=== PATIENT | male | born 1945 | race African-American/Black ===

== ENCOUNTER 2018-05-03 15:02 | Inpatient (IN) | payer MEDICARE, MEDICAID ==
[~2018-05-03] VITALS: Ht 170.2 cm; Wt 73.9 kg
[2018-05-03] MEDS ORDERED: SODIUM CHLORIDE 0.9% 1000ML BAG (SEPSIS BOLUS) IV ONE (15:45)
[2018-05-03 16:15] LABS: CHLORIDE 101 mEq/L (98-107)
[2018-05-03 16:18] LABS: PROTHROMBIN TIME 10.5 sec (9.1-11.1)
[2018-05-03 16:20] LABS: ETHANOL BLOOD < 10 mg/dL
[2018-05-03 16:21] LABS: HEMATOCRIT. 34.8 % (42.0-52.0); HEMOGLOBIN. 11.8 g/dL (14.0-18.0); LYMPHOCYTES % 25.3 % (20.0-50.0); MEAN CORPUSCULAR HEMOGLOBIN 31.8 pg (28.0-32.0); MEAN CORPUSCULAR VOLUME 94.1 fL (80.0-94.0); MEAN PLATELET VOLUME 8.1 fl (7.4-10.4); MONOCYTES % 10.4 % (2.0-8.0); NEUTROPHILS % 58.3 % (40.0-76.0); PLATELET 369 x1000/uL (130-400); RED CELL DISTRIBUTION WIDTH 13.1 % (11.6-14.6)
[2018-05-03 18:12] LABS: CLARITY URINE CLEAR (CLEAR); COLOR URINE YELLOW (YELLOW); KETONES URINE TRACE (NEGATIVE); LEUKOCYTE ESTERASE URINE NEGATIVE (NEGATIVE); NITRITE URINE NEGATIVE (NEGATIVE); OCCULT BLOOD URINE 1+ (NEGATIVE); PH URINE 5.5 (4.5-8.0); PROTEIN URINE NEGATIVE (NEGATIVE); SPECIFIC GRAVITY URINE 1.017 (1.005-1.030)
[2018-05-03 18:34] LABS: CANNABINOID URINE SCREEN NEGATIVE (NEGATIVE); METHADONE URINE SCREEN NEGATIVE (NEGATIVE); OPIATES URINE SCREEN NEGATIVE (NEGATIVE); PHENCYCLIDINE URINE SCREEN NEGATIVE (NEGATIVE)
[2018-05-03 18:35] LABS: *AMPHETAMINES SCREEN URINE NEGATIVE (NEGATIVE); *BARBITURATES SCREEN URINE NEGATIVE (NEGATIVE); *BENZODIAZEPINES SCREEN URINE NEGATIVE (NEGATIVE); *COCAINE SCREEN URINE NEGATIVE (NEGATIVE)
[2018-05-03 19:30] LABS: AMMONIA 42 uMol/L (<32)
[2018-05-03] MEDS ORDERED: CHLO25TA2 PO (23:47)
[2018-05-03] MEDS ORDERED: QUET50TA PO (23:47)
[2018-05-03] MEDS ORDERED: BENA40TA9 PO (23:47)
[2018-05-03] MEDS ORDERED: NIFE30TA83 PO (23:47)
[2018-05-03] MEDS ORDERED: ATOR10TA69 PO (23:47)
[2018-05-03] MEDS ORDERED: ACET-2178 PO (23:47)
[2018-05-04] VITALS (13 sets, daily range): BP systolic 92–136; BP diastolic 57–89
[2018-05-04] MEDS ORDERED: MEDICATION NOT ON FORMULARY EA (Acetaminophen (Tylenol) 2 TAB) PO PRN (01:00)
[2018-05-04] MEDS ORDERED: ONDANSETRON HCL 4MG/2ML VIAL IV PRN (01:00)
[2018-05-04] MEDS ORDERED: ACETAMINOPHEN 325MG TABLET PO PRN (01:30)
[2018-05-04] MEDS: SODIUM CHLORIDE 0.9% 1,000 ML IV SCH ×2 (02:57→16:42)
[2018-05-04 07:08] LABS: CHLORIDE 106 mEq/L (98-107)
[2018-05-04 07:15] LABS: BASOPHILS % 0.9 % (0.0-2.0); EOSINOPHILS % 6.1 % (0.0-5.0); HEMATOCRIT. 32.1 % (42.0-52.0); HEMOGLOBIN. 10.8 g/dL (14.0-18.0); LYMPHOCYTES % 28.1 % (20.0-50.0); MEAN CORPUSCULAR HEMOGLOBIN 31.9 pg (28.0-32.0); MEAN CORPUSCULAR VOLUME 94.5 fL (80.0-94.0); MEAN PLATELET VOLUME 7.8 fl (7.4-10.4); MONOCYTES % 8.6 % (2.0-8.0); NEUTROPHILS % 56.3 % (40.0-76.0); PLATELET 343 x1000/uL (130-400); RED CELL DISTRIBUTION WIDTH 13.2 % (11.6-14.6)
[2018-05-04] MEDS ORDERED: FAMOTIDINE 20MG TABLET PO SCH (09:00)
[2018-05-04] MEDS: FAMOTIDINE 20MG TABLET PO SCH (20:53)
[2018-05-04] MEDS ORDERED: ATORVASTATIN CALCIUM 10MG TABLET PO SCH (21:00)
[2018-05-05] VITALS (11 sets, daily range): BP systolic 90–119; BP diastolic 54–80
[2018-05-05] MEDS: SODIUM CHLORIDE 0.9% 1,000 ML IV SCH (05:23)
[2018-05-05 07:43] LABS: EOSINOPHILS % 6.1 % (0.0-5.0); HEMATOCRIT. 33.3 % (42.0-52.0); HEMOGLOBIN. 11.2 g/dL (14.0-18.0); MEAN CORPUSCULAR HEMOGLOBIN 31.6 pg (28.0-32.0); MEAN CORPUSCULAR VOLUME 94.3 fL (80.0-94.0); MEAN PLATELET VOLUME 8.3 fl (7.4-10.4); MONOCYTES % 8.5 % (2.0-8.0); NEUTROPHILS % 51.4 % (40.0-76.0); PLATELET 338 x1000/uL (130-400); RED BLOOD CELL COUNT 3.53 mill/uL (4.7-6.1); RED CELL DISTRIBUTION WIDTH 12.8 % (11.6-14.6)
[2018-05-05 07:48] LABS: CHLORIDE 105 mEq/L (98-107)
[2018-05-05] MEDS: FAMOTIDINE 20MG TABLET PO SCH (09:53)
== END 2018-05-05 16:45 | DRG 682 ==
LOC: ER 15:02 → EDBEDREQTM 18:44 → EDBEDREQ 18:44 → ENRESERV 20:40 → 3WST 22:57
PROVIDERS: ADMIT Internal Medicine; ATTEND Internal Medicine
DX: N17.9 Acute kidney failure, unspecified (principal); G93.41 Metabolic encephalopathy; J98.11 Atelectasis; I69.354 Hemiplegia and hemiparesis following cerebral infarction affecting left non-dominant side; I10 Essential (primary) hypertension; X58.XXXA Exposure to other specified factors, initial encounter; F03.90 Unspecified dementia, unspecified severity, without behavioral disturbance, psychotic disturbance, mood disturbance, and anxiety; D64.9 Anemia, unspecified; S70.312A Abrasion, left thigh, initial encounter; E78.00 Pure hypercholesterolemia, unspecified; S70.311A Abrasion, right thigh, initial encounter; E78.5 Hyperlipidemia, unspecified; E86.0 Dehydration; N40.0 Benign prostatic hyperplasia without lower urinary tract symptoms; E27.9 Disorder of adrenal gland, unspecified; Z79.1 Long term (current) use of non-steroidal anti-inflammatories (NSAID); Z79.899 Other long term (current) drug therapy; Y93.89 Activity, other specified; Y92.89 Other specified places as the place of occurrence of the external cause; Y99.8 Other external cause status
CPT/HCPCS: 36415; 70450; 70551; 71045; 74176; 80048; 80053; 80061; 80305; 81003; 82140; 83605; 83690; 83880; 84134; 84443; 84484; 85025; 85610; 87040; 87086; 87493; 92610; 93005; 93970; 96360; 96361; 97110; 97162; 97530; 99291; G0482; J7030; J7040; A4315